=== PATIENT | female | born 1990 | race African-American/Black ===

== ENCOUNTER 2018-06-26 08:45 | Observation (INO) | payer MEDICAID ==
[2018-06-26] MEDS ORDERED: PREN-153 OR (09:00)
== END 2018-06-26 09:45 | disposition home or self-care (01) | DRG 566 ==
LOC: LDRP 08:45
PROVIDERS: ADMIT Specialist; ATTEND Specialist
DX: O62.9 Abnormality of forces of labor, unspecified (principal); O26.893 Other specified pregnancy related conditions, third trimester; N89.8 Other specified noninflammatory disorders of vagina; Z3A.38 38 weeks gestation of pregnancy
CPT/HCPCS: 59025; 81002; G0378

== ENCOUNTER 2018-06-26 21:14 | Observation (INO) | payer MEDICAID ==
[~2018-06-26] VITALS: Ht 170.2 cm; Wt 78.5 kg
[~2018-06-26 21:14] MED LIST: PREN-153 OR
== END 2018-06-26 23:37 | disposition home or self-care (01) | DRG 566 ==
LOC: LDRP 21:14
PROVIDERS: ADMIT Obstetrics & Gynecology; ATTEND Obstetrics & Gynecology
DX: O62.9 Abnormality of forces of labor, unspecified (principal); O26.893 Other specified pregnancy related conditions, third trimester; H53.8 Other visual disturbances; N89.8 Other specified noninflammatory disorders of vagina; R11.0 Nausea; O36.8130 Decreased fetal movements, third trimester, not applicable or unspecified; Z3A.38 38 weeks gestation of pregnancy
CPT/HCPCS: 59025; 76818; 81002; G0378